=== PATIENT | female | born 1940 | race Caucasian/White ===

== ENCOUNTER 2022-04-16 11:45 | Outpatient (RCR) | payer MEDICARE, BC, SELFPAY | END 2022-04-25 13:46 | disposition home or self-care (01) | PROVIDERS: Visit Provider Family Medicine | DX: R26.9 Unspecified abnormalities of gait and mobility (principal); Z51.89 Encounter for other specified aftercare | CPT/HCPCS: 97110; 97112; 97140; 97162 ==

== ENCOUNTER 2023-02-05 09:52 | Outpatient (CLI) | payer MEDICARE, BC, SELFPAY | END 2023-02-05 09:53 | disposition home or self-care (01) | PROVIDERS: PCP Family Medicine; Visit Provider Family Medicine | DX: M53.3 Sacrococcygeal disorders, not elsewhere classified (principal) | CPT/HCPCS: 27096; J0702; Q9966 ==

== ENCOUNTER 2023-02-26 14:00 | Outpatient (RCR) | payer MEDICARE, BC, SELFPAY | END 2023-05-17 14:31 | disposition home or self-care (01) | PROVIDERS: PCP Family Medicine; Referring Provider Family Medicine; Visit Provider Family Medicine | DX: M54.40 Lumbago with sciatica, unspecified side (principal); M70.60 Trochanteric bursitis, unspecified hip; Z98.1 Arthrodesis status; M25.551 Pain in right hip; M25.552 Pain in left hip; M53.3 Sacrococcygeal disorders, not elsewhere classified; G89.29 Other chronic pain; M47.818 Spondylosis without myelopathy or radiculopathy, sacral and sacrococcygeal region; R26.9 Unspecified abnormalities of gait and mobility; R26.81 Unsteadiness on feet; R53.1 Weakness; Z51.89 Encounter for other specified aftercare | CPT/HCPCS: 97110; 97112; 97116; 97161; 97164 ==

== ENCOUNTER 2024-01-08 08:30 | Emergency (ER) | payer MEDICARE, BC, SELFPAY ==
[2024-01-08 08:43] VITALS: BP 183/97; PULSE 59; RESP 16; TEMP 36.2; O2SAT 99; BMI 26.9
--- NOTE | 2024-01-08 11:03 | ED_ITS ---
HPI - Dizziness General Chief Complaint: Dizziness/Vertigo Stated Complaint: 58/38 BP, dizzy Time Seen by Provider: 01/08/24 08:53 History of Present Illness HPI Narrative: This 83-year-old female comes in with her because of report of dizziness. Her states that she has dementia and. He reports that she has had his dizziness for a couple years. He states that she is on medications that she takes in the morning except for midodrine which she takes twice a day. She has increased blood pressure upon arrival but this was after taking her medicines in the morning. She reports feeling lightheadedness and vertigo symptoms both upon getting up in the morning. She may have low blood pressure at this time contributing to lightheadedness. She also describes vertigo symptoms. Related Data Previous Rx's ?Medication ?Instructions ?Recorded meclizine 25 mg tablet 25 mg PO QID PRN #20 tabs 01/08/24 Allergies Allergy/AdvReac Type Severity Reaction Status Date / Time No Known Drug Allergies Allergy Verified 01/08/24 08:48 Review of Systems Narrative: The patient is a poor historian due to dementia. Exam Narrative: Exam Narrative: Constitutional: Well-developed, well-nourished, no acute distress. HEENT: Normocephalic, atraumatic. Neck: Normal range of motion. Nontender. Supple. Heart: Regular. No murmurs. Normal rate. Intact distal pulses. Lungs: Clear to auscultation. No chest discomfort. No wheezes, rhonchi, or rales. Abdomen: Normal bowel sounds. Nontender. No rebound tenderness. Genitalia: Deferred. Back: No midline tenderness. Normal range of motion. Extremities: Normal range of motion. No injury. Skin: Intact. No rash. Warm. No erythema or pallor. Neurologic: No altered sensation. No weakness. Alert and oriented. No facial asymmetry. Tongue is midline. [id number] is normal. No pronator drift. Instructor Extension Work strength is equal bilaterally. Able to raise each leg from the bed. Psychiatric: No suicidality. No anxiety or depression. No insomnia. Nursing notes and vitals signs are reviewed. Const: Vital Signs, click to edit/add: Vital Signs - 24 hr 01/08/24 08:43 Temperature 97.1 F L Pulse Rate [Pulse Oximeter] 59 L Respiratory Rate 16 Blood Pressure [Le ft Upper Arm] 183/97 H Blood Pressure [Ri ght Upper Arm] 183/97 H Pulse Oximetry 99 Oxygen Delivery Me thod Room Air Course Vital Signs Vital signs: Initial Vital Signs Temperature 97.1 F L 01/08/24 08:43 Temperature Source Temporal Artery Scan 01/08/24 08:43 Pulse Rate 59 L 01/08/24 08:43 Respiratory Rate 16 01/08/24 08:43 Blood Pressure 183/97 H 01/08/24 08:43 Blood Pressure Mean 125 H 01/08/24 08:43 Blood Pressure Position Supine 01/08/24 08:43 Pulse Oximetry 99 01/08/24 08:43 Oxygen Delivery Method Room Air 01/08/24 08:43 Vital Signs Temperature 97.1 F L 01/08/24 08:43 Pulse Rate 59 L 01/08/24 08:43 Respiratory Rate 16 01/08/24 08:43 Blood Pressure 183/97 H 01/08/24 08:43 Pulse Oximetry 99 01/08/24 08:43 Oxygen Delivery Method Room Air 01/08/24 08:43 Temperature 97.1 F L 01/08/24 08:43 Pulse Rate 59 L 01/08/24 08:43 Respiratory Rate 16 01/08/24 08:43 Blood Pressure 183/97 H 01/08/24 08:43 Pulse Oximetry 99 01/08/24 08:43 Oxygen Delivery Method Room Air 01/08/24 08:43 MDM - Dizziness MDM Narrative Medical decision making narrative: This patient has episodes of dizziness which she states is both vertigo and lightheadedness. These symptoms have been going on for a couple years or more. She does take medicines that increase her blood pressure. She reports more symptoms of lightheadedness and vertigo upon awakening in the morning. Her neurologic exam is completely normal. This is not a new situation for her. Her states she recently had her blood checked. She is not exhibiting any sign of stroke or central process for her symptoms. I did review the patient's medications and encouraged her to administer them before arising from bed in the morning if possible as he reports that he is measured low blood pressures at this time. She arrives here with elevated blood pressure. She is not showing any symptoms of nystagmus or vertigo currently. I did discuss lab and imaging options with the patient and her and in a process of shared decision making these were declined for now. The patient did receive a tablet of meclizine which can be used as needed and directed as I also provided a prescription for these. I recommended follow-up with primary physician also. Discharge Plan Discharge Clinical Impression: Vertigo, Episodic lightheadedness Patient Disposition: Home w/ Parent or Adult Condition: Stable Additional Instructions: Continue current medications. Consider administering morning medications before arising from bed. Use meclizine also as needed and directed. Follow up with and D for ongoing management. Return if worsening. Prescriptions: New meclizine 25 mg tablet 25 mg PO QID PRNQty: 20 0RF Follow Up/Referrals: Steph Vickers MD [Primary Care Provider] - Stand Alone Forms: [employer] Info Instructions
[2024-01-08] MEDS: MECLIZINE HCL 25 MG TABLET PO (11:11)
[2024-01-08 12:03] VITALS: BP 144/85; PULSE 57; RESP 18
== END 2024-01-08 12:11 | disposition home or self-care (01) ==
PROVIDERS: Emergency Provider Emergency Medicine Emergency Medical Services; PCP Family Medicine
DX: R42 Dizziness and giddiness (principal)
CPT/HCPCS: 99283; 99284; A9270